=== PATIENT | female | born 1990 | race Caucasian/White ===

== ENCOUNTER 2018-06-28 14:38 | Outpatient (CLI) | payer OTHER, SELFPAY | END 2018-06-28 15:30 | disposition home or self-care (01) | LOC: WPOUT 14:39 → WP 14:39 | PROVIDERS: Referring Provider Advanced Practice Midwife; Visit Provider Advanced Practice Midwife | DX: Z39.1 Encounter for care and examination of lactating mother (principal) | CPT/HCPCS: 96152 ==

== ENCOUNTER 2018-08-02 00:05 | Inpatient (IN) | payer OTHER, SELFPAY ==
[2018-08-02] MEDS: Lactated Ringers 1,000 ML 50 ML IV (00:35)
[2018-08-02 00:39] VITALS: BMI 36.1
[2018-08-02 00:49] LABS: Hematocrit 37.5 % (37-47); Hemoglobin 12.5 g/dl (12.0-15.0); Mean Corp Hgb Conc 33.3 g/gl (32-36); Mean Corpuscular Hgb 29.3 pg (27.0-32.0); Mean Corpuscular Volume 87.8 fL (81-99); Mean Platelet Vol. 11.6 fl (6.2-12.0); Platelet Count 191 K/mm3 (150-450); RBC Distribution Width SD 43.6 fl (35.1-43.9); Red Blood Count 4.27 M/mm3 (4.2-5.4); White Blood Count 12.4 K/mm3 (4.4-11.0)
[2018-08-02 00:50] LABS: Scan Indicated on CBC? Y/N NO
--- NOTE | 2018-08-02 00:50 | PCM.HP.OB ---
History Date of Admission: 08/02/18 Final DAVID: 08/09/18 Final DAVID Source: US <20 weeks Gestational age: 39 Weeks and 0 Days History of this : 28-year-old 3 para 1011 at 39 weeks gestation with EDC of 08/09/2018 by last menstrual period confirmed by first trimester ultrasound presents for contractions. She denies any vaginal bleeding or leaking of fluid. Contractions began getting more intense at 8 PM they began right getting really intense when she arrived to labor and delivery. was uncomplicated to date. Medical history significant for history of DVT and factor V Leiden but patient does not have a history of these personally. Allergies amoxicillin Allergy (Verified 08/02/18 00:41) Hives erythromycin base Allergy (Verified 08/02/18 00:41) Hives Smoking Status: Never smoker Number of Fetus(es): 1 History Past Pregnancies: Past Pregnancies Delivery Date Name GA/Weeks Outcome Route Weight Gender Labor Length Anesthesia Delivery Location Provider FOB Expected Infant Delivery Method: Spontaneous Vaginal Review of Systems Constitutional: Denies: Anorexia, Chills, Fever Cardiovascular: Denies: Chest Pain Respiratory: Denies: Cough Skin: Denies: Rash Physical Exam General: Alert, Cooperative, No apparent distress Cardiovascular: Regular rate Lungs: Normal air movement Abdomen: Soft, Non-Distended, Gravid, Appropriate for Gestational Age Extremities:: Other - edema 1+ Assessment/Plan This is a 28 year-old, 3 para 1011 at 39 with gestation with spontaneous labor #1 estimated weight is less than 4500 g and pelvis clinically adequate to expect vaginal delivery #2 artificial rupture membranes was performed with return of clear fluid. Next number patient may have epidural or nitrous oxide as needed
[2018-08-02] MEDS: Oxytocin 30 units/NS 500 ml 30 UNITS/500 ML IV.SOLN 334 UNITS IV (01:12)
--- NOTE | 2018-08-02 01:26 | PCM.OB.VAG ---
Vaginal Delivery Maternal Presentation: Active Labor Amniotic Membrane Rupture Type: Artificial Amniotic Fluid Description: Clear Final DAVID: 08/09/18 Final DAVID Source: US <20 weeks Gestational age: 39 Weeks and 0 Days Date of Procedure: 08/02/18 Pre-Operative Diagnosis: labor Post-Operative Diagnosis: labor Surgery/ Procedure Performed: Spontaneous Vaginal Delivery Type of Anesthesia: Local with 1% lidocaine - 15 cc Description of Procedure: A vigorous male infant was delivered DOUGLAS over a second-degree perineal laceration. A tight nuchal cord was reduced. The remainder the infant was delivered with maternal pushing and gentle traction only in less than 15 seconds. The Pitocin infusion was initiated for active management of the third stage. The cord was clamped and cut after 1 minute. The was attended to by the waiting nursing staff. The placenta was delivered spontaneously and intact. The cervix and vagina were intact. The second-degree perineal laceration was repaired with 3-0 Vicryl suture in a running standard fashion. Sponge and needle counts were correct. A vaginal sweep was completed by me. Presentation: DOUGLAS Placental Delivery Description: Spontaneous Placenta Disposition: [facility] Cord Vessel Description: 3 Vessels Nuchal Cord Compression: Without compression Cord Entanglement: Around neck x 1, tight Drain: - - none Estimated Blood Loss: 400 A gender: Male (1 minute): 8 (5 minute): 9 Episiotomy Description: None Laceration: 2nd degree - perineal Medications given after delivery: IV Pitocin Complications: None
--- NOTE | 2018-08-02 01:30 | OP.PCM_ITS ---
Vaginal Delivery Maternal Presentation: Active Labor Amniotic Membrane Rupture Type: Artificial Amniotic Fluid Description: Clear Final DAVID: 08/09/18 Final DAVID Source: US <20 weeks Gestational age: 39 Weeks and 0 Days Date of Procedure: 08/02/18 Pre-Operative Diagnosis: labor Post-Operative Diagnosis: labor Surgery/ Procedure Performed: Spontaneous Vaginal Delivery Type of Anesthesia: Local with 1% lidocaine - 15 cc Description of Procedure: A vigorous male infant was delivered DOUGLAS over a second-degree perineal laceration. A tight nuchal cord was reduced. The remainder the infant was delivered with maternal pushing and gentle traction only in less than 15 sec onds. The Pitocin infusion was initiated for active management of the third stage. The cord was clamped and cut after 1 minute. The was attended to by the waiting nursing staff. The placenta was delivered spontaneously and intact. The cervix and vagina were intact. The second-degree perineal laceration was repaired with 3-0 Vicryl suture in a running standard fashion. Sponge and needle counts were correct. A vaginal sweep was completed by me. Presentation: DOUGLAS Placental Delivery Description: Spontaneous Placenta Disposition: [facility] Cord Vessel Description: 3 Vessels Nuchal Cord Compression: Without compression Cord Entanglement: Around neck x 1, tight Drain: - - none Estimated Blood Loss: 400 Infant A gender: Male (1 minute): 8 (5 minute): 9 Episiotomy Description: None Laceration: 2nd degree - perineal Medications given after delivery: IV Pitocin Complications: None
[2018-08-02] MEDS: Oxytocin 30 units/NS 500 ml 30 UNITS/500 ML IV.SOLN 167 UNITS IV (01:42)
[2018-08-02 04:05] VITALS: BP 104/63; PULSE 83; RESP 18; TEMP 36.6
[2018-08-02] MEDS: Acetaminophen 500 MG Tablet 1000 MG PO ×2 (08:41→20:56)
[2018-08-02 08:45] VITALS: BP 116/67; PULSE 90; RESP 24; TEMP 37.2; O2SAT 99
[2018-08-02 14:00] VITALS: BP 113/63; PULSE 93; TEMP 37.1; O2SAT 96
[2018-08-02 17:10] VITALS: PULSE 86; TEMP 36.9; O2SAT 98
[2018-08-02 18:10] VITALS: BP 111/58
[2018-08-02 20:00] VITALS: BP 119/66; PULSE 85; RESP 18; TEMP 37.1
[2018-08-03 00:30] VITALS: BP 116/72; PULSE 71; RESP 18; TEMP 36.5
[2018-08-03 03:45] VITALS: BP 114/55; PULSE 80; RESP 16; TEMP 36.7
[2018-08-03] MEDS: Naproxen 250 MG Tablet PO (06:25)
[2018-08-03] MEDS: Senna/Docusate Sodium 1 Tablet PO (06:25)
[2018-08-03 08:00] VITALS: BP 109/58; PULSE 77; RESP 18; TEMP 36.8
--- NOTE | 2018-08-03 09:02 | PCM.PN.OB ---
Subjective: Doing well per patient and nursing staff. Voiding and passing flatus. Ambulating and taking PO without difficulty. without concerns, baby latching well. Pain controlled by Naproxen and Tylenol. Denies headache, visual changes, chest pain, SOB,leg pain, increased vaginal bleeding or clots. Unsure for discharge date. - Physical Exam General: Alert, Oriented x3, Cooperative HEENT: Atraumatic, Normocephalic Lungs: Clear to auscultation, Normal air movement, No rhonchi, No wheeze Cardiovascular: Regular rate, Regular Rhythm, No murmurs Abdomen: Bowel Sounds Present, Soft, Non Tender, - - Fundus firm 2 below U Extremities: No edema, - - Rikki's negative Psych/Mental Status: Normal Affect, Appropriate Vital Signs Temp Pulse Resp BP Pulse Ox 98.2 F 77 18 109/58 L 98 08/03/18 08:00 08/03/18 08:00 08/03/18 08:00 08/03/18 08:00 08/02/18 17:10 Oxygen Delivery Method Room Air Weight: 204 lb Body Mass Index (BMI) 36.1 Intake and Output for Last 24 Hours 08/01/18 08/02/18 08/03/18 23:59 23:59 23:59 Output Total 200 / 200 Balance -200 / -200 Medical Necessity - Tobacco Use Smoking Status: Never smoker Assessment/Plan A:PPD #1 Second degree perineal laceration P: 1) Routine PP and care. 2) Baby getting circ today. 3) Declines LARC 4) Declines pain medicatino, will use OTC 5) Unsure for discharge today or tomorrow. Information given for follow up in 6 weeks and discharge instructions. May stay if she desires.
--- NOTE | 2018-08-03 09:08 | DCINST_ITS ---
Discharge Diet: No Restrictions Discharge Activity: Return to Normal Activity, May not drive while taking narcotic pain medications., May Shower, May Take a Tub Bath May resume sexual activity in: 4-6 weeks Weight Bearing Status: Full weight bearing Call your doctor if your incision/area has: Continuous Slow Oozing, Sudden Increased Bleeding, Increased Pain/ Swelling, Increased Redness, Foul Smelling Discharge Call your doctor if you observe: Fever of 101 or Higher, Inability to urinate, Inability to have a bowel movement, Using more than one pad per hour, Shortness of breath, Chest pain, Increased palpitations (irregular heartbeat), Calf discomfort, Uncontrolled pain Additional Instructions: If you experience any of the following, contact your healthcare provider. * Bleeding that soaks a pad every hour for 2 hours * Fever 100.4 or higher * Unrelieved incision or abdominal pain * Swelling, redness, discharge or bleeding from your incision or episiotomy site * Your incision begins to separate * Problems urinating (including inability to urinate or burning while urinating). * Visual changes * Severe headache * Flu-like symptoms * Pain or redness in one of both of your breasts * Pain, warmth, tenderness or swelling in your legs, especially the calf area * Frequent nausea and vomiting * Symptoms of depression or anxiety If you experience any of the following, call 911 or go to the nearest Emergency Room. * Chest pain * Problems breathing * Seizure activity * Partial or complete paralysis of a body part, slurred speech, weakness or sherman oping of the face, or a sudden inability to walk or hold your balance Allergies/Adverse Reactions: Allergies amoxicillin Allergy (Verified 08/02/18 00:41) Hives erythromycin base Allergy (Verified 08/02/18 00:41) Hives Medications to take at Discharge Vits [Prenatabs FA ] 1 tablet PO DAILY 08/02/18 Acetaminophen [Tylenol] 1,000 mg PO Q8H PRN PRN tablet 08/03/18 Naproxen [Naprosyn] 250 - 500 mg PO Q8H PRN PRN tablet 08/03/18 Please Follow Up With: Ebony Carlton MD When: Call to make an appointment with your doctor in 6 weeks. If you had elevated Blood Pressure or 4th degree laceration you will need to be seen in 2 weeks. Primary Care Physician: Care Physician,No Primary [Primary Care Provider] - Test Results: Test results from this visit will be discussed in further detail at your follow- up appointment, if applicable.
[2018-08-03 15:24] VITALS: BP 123/58; PULSE 88; RESP 18; TEMP 36.9
== END 2018-08-03 15:50 | disposition home or self-care (01) | DRG 807 ==
PROVIDERS: Admitting Provider Obstetrics & Gynecology; Visit Provider Obstetrics & Gynecology
DX: O69.1XX0 Labor and delivery complicated by cord around neck, with compression, not applicable or unspecified (principal); Z37.0 Single live birth; Z3A.39 39 weeks gestation of pregnancy; O70.1 Second degree perineal laceration during delivery
CPT/HCPCS: 59050; 85027; 86850; 86900; 99218; J7120; G0378

== ENCOUNTER 2018-08-08 13:40 | Outpatient (CLI) | payer OTHER, SELFPAY | END 2018-08-08 14:25 | disposition home or self-care (01) | LOC: WPOUT 13:49 → WP 13:51 | PROVIDERS: Referring Provider Obstetrics & Gynecology; Visit Provider Obstetrics & Gynecology | DX: R63.3 Feeding difficulties (principal) | CPT/HCPCS: 96152 ==

== ENCOUNTER 2021-06-17 03:50 | Emergency (ER) | payer OTHER, SELFPAY ==
[2021-06-17 03:51] VITALS: BP 115/69; PULSE 111; RESP 18; TEMP 36.7; O2SAT 96; BMI 35.8
[2021-06-17 03:54] VITALS: BP 117/74; PULSE 89; RESP 18; TEMP 37.1; O2SAT 97; BMI 35.8
--- NOTE | 2021-06-17 03:56 | EDS_ITS ---
HPI History of Present Illness Chief Complaint: Shortness of Breath Informant: patient and EMS Onset/Context/Timing Onset: Yesterday Context: gradual and light activity (now at rest) Timing: Continuous Quality: Positive for - (feels short of breath) Current Severity: Moderate Maximum Severity: Moderate Worsened by: Exertion and Coughing Relieved by: Rest Associated Symptoms cough Chest Pain: Positive for None Narrative Narrative: Patient started having fevers and a cough with some congestion for 5 days ago, started getting short of breath yesterday worse now. No known contact with anyone with Covid. She is unvaccinated. No travel out of the area recently or history of blood clots but she states a family member has them but she does not know why, it is her grandfather. PE Risk Factors: Negative for Cancer, OCP + Smoking + > 35, Prior DVT or PE, Recent immobilization, Recent surgery and Recent travel PFSH PFSH no medical history Home Medications vit,[id number] [Prenatabs FA] 1 tab PO DAILY 08/02/18 [History Last Taken 08/01/18 08:00] acetaminophen 1,000 mg PO Q8H PRN PRN tablet 08/03/18 [Rx Last Taken Unknown] naproxen 250 - 500 mg PO Q8H PRN PRN tablet 08/03/18 [Rx Last Taken Unknown] Controll 1 tab PO.IVFORM DAILY 06/17/21 [History Last Taken Unknown] albuterol sulfate [Ventolin HFA] 1 - 2 puff INHALATION Q4H PRN PRN #1 inhaler 06/17/21 [Rx Last Taken Unknown] potassium chloride [Klor-Con M20] 40 meq PO DAILY #10 tablet 06/17/21 [Rx Last Taken Unknown] Allergy/AdvReac Type Severity Reaction Status Date / Time amoxicillin Allergy Hives Verified 06/17/21 04:02 erythromycin base Allergy Hives Verified 06/17/21 04:02 Social History Smoking Status: Never smoker ROS ROS ED Constitutional Constitutional ED: Reports chills, fatigue, fever(s) and malaise; Denies body ache(s) or headache(s) Eyes Eyes: Denies change in vision or diplopia ENT ENT ED: Reports nasal congestion; Denies rhinorrhea or sore throat Cardiovascular Cardiovascular: Denies chest pain or palpitations Respiratory/Chest Respiratory/Chest: Reports cough, dyspnea and dyspnea on exertion Gastrointestinal Gastrointestinal: Denies abdominal pain, diarrhea, nausea or vomiting Genitourinary Genitourinary ED: Denies dysuria or hematuria Musculoskeletal Musculoskeletal: Denies back pain or neck pain Integumentary Denies abscess or rash Neurologic Neurologic: Denies headache(s), paresthesias or weakness Psychiatric Psychiatric: Denies anxiety or suicidal thoughts EXAM Physical Exam Const Vital Signs: 06/17/21 03:51 06/17/21 03:54 06/17/21 04:04 Temperature 98.0 F 98.7 F Temperature Source Temporal Temporal Pulse Rate 111 H 89 Respiratory Rate 18 18 Respiratory Effort Short of Breath Blood Pressure 115/69 117/74 Blood Pressure Mean 84 88 Pulse Ox 96 97 Oxygen Delivery Method Room Air Room Air Positive well nourished and well developed Constitutional Narrative: Well-appearing, no distress. Mildly tachypneic. General Appearance ED: well developed and NAD HEENT Reports moist mucous membranes normocephalic and atraumatic Eyes PERRL and EOMs intact bilaterally Neck full ROM and supple Resp normal respiratory effort and clear to auscultation bilaterally Cardio regular rate, regular rhythm and no murmurs Rate: tachycardic GI non-tender and non-distended Auscultation: normoactive bowel sounds Palpation: soft Back/Spine no CVA tenderness General Back: other FROM Extremity normal to inspection and no calf tenderness General Extremety ED: Negative for edema, pulses abnormal or tenderness General Extremity: Negative for edema or pulses abnormal Neuro oriented x3, CN's II-XII intact bilaterally and no sensory deficits noted Sensorium / Orientation: awake and alert Motor Exam: strength 5/5 throughout Skin no rashes or lesions noted and no wounds MDM MDM MDM Narrative Medical decision making narrative: Patient's Covid test returned positive. Her chest x-ray shows what appears to be a lobar infiltrate on the right lower lobe, although according to radiology, there is also some on the left. I obtained some labs at that point to check her white blood count mainly, as a clue to bacterial superinfection. Since she has leukopenia which is consistent with COVID-19, I think this is just Covid pneumonitis and not bacterial pneumonia. Dentally her potassium is very low. She has no reason to be full body potassium depleted, she did come in somewhat tachypneic and is not tachypneic on reevaluation, breathing comfortably, and is possible this is partly due to shift due to respiratory alkalosis/anxiety, however at 2.9 I think it is reasonable to give her some potassium prior to discharge home since her oxygenation is excellent at 97% on room air. She is given a dose of IV 10 mEq as well as oral 40 mEq and will be discharged on some more potassium and advised to watch her pulse ox and discussed reasons to return. Lab Data Attestation: I reviewed the patient's lab results. Labs: Laboratory Results - last 24 hr 06/17/21 06/17/21 05:20 05:20 WBC 2.8 L RBC 4.66 Hgb 12.7 Hct 38.5 MCV 82.6 MCH 27.3 MCHC 33.0 RDW Std Deviation 39.9 RDW Coeff of Greg 13.2 Plt Count 88 L MPV 11.0 Immature Gran % (Auto) 0.400 Neut % (Auto) 82.5 H Lymph % (Auto) 13.2 L [place] % (Auto) 3.9 Eos % (Auto) 0.0 Baso % (Auto) 0.0 Absolute Neuts (auto) 2.3 Absolute Lymphs (auto) 0.37 L Nucleated RBC % 0 Sodium 135 L Potassium 2.9 L Chloride 104 Carbon Dioxide 25.0 Anion Gap 6 BUN 7 Creatinine 0.78 Estim Creat Clear Calc 85.65 Est GFR (MDRD) Af Amer 109 Est GFR (MDRD) Non-Af 90 BUN/Creatinine Ratio 8.9 L Glucose 123 H Calcium 8.2 L Radiography Diagnostic Testing: Radiology Impression Chest X-Ray 06/17/21 04:02 IMPRESSION: Pneumonia in the lower lung beebe, right greater than left. Electronically Signed: Erwin Angel MD at 5:55 EDT , Service support , Discharge Plan Triage Chief Complaint: Shortness of Breath ED Provider: Artie Weir Dx/Rx/DC Orders Clinical Impression: Pneumonia due to 2019 novel coronavirus, Hypokalemia Instructions: Coronavirus Disease 2019 (COVID-19): Caring for Yourself or Ot hers, ED Hypokalemia Prescriptions: New potassium chloride [Klor-Con M20] 20 mEq tablet,ER particles/crystals 40 meq PO DAILY Qty: 10 RF: 0 albuterol sulfate [Ventolin HFA] 1 INHALER inhaler 1 - 2 puff inhalation Q4H PRN PRN (Reason: Wheezing) Qty: 1 RF: 0 No Action vit,[id number] [Prenatabs FA] 1 TABLET tablet 1 tab PO DAILY RF: 0 naproxen 250 MG tablet 250 - 500 mg PO Q8H PRN PRN (Reason: Mild Pain (-12/09)) RF: 0 acetaminophen 500 MG tablet 1,000 mg PO Q8H PRN PRN (Reason: MILD PAIN ()/Temp>99.6F) RF: 0 Controll 1 tab PO.IVFORM DAILY RF: 0 Primary Care Provider: Care Physician,No Primary Referrals: Claire Pedraza MD [STAFF PHYSICIAN] - (for follow up appt) Care Physician,No Primary [Primary Care Provider] - Activity Restrictions/Additional Instructions: Try to get a home portable pulse oximeter and closely watch her oxygen levels periodically. If you stay below 90% for more than a minute or so, and/or you are feeling like your breathing is getting worse, return to the emergency department for further evaluation. Disposition Disposition: Home, Self Care
--- NOTE | 2021-06-17 04:02 | RAD_ITS ---
STUDY: X-RAY CHEST REASON FOR EXAM: Female, 31 years old. cough sob fever TECHNIQUE: Single AP portable view of the chest. COMPARISON: None. FINDINGS: There are patchy airspace infiltrates in the lower lung beebe bilaterally, right greater than left. There is no demonstrated pleural abnormality. Normal size heart. Normal mediastinum and mack. Normal visualized aortic arch and descending thoracic aorta. There are no demonstrated acute fractures or destructive bone lesions. There is no demonstrated abnormality of the visualized soft tissue structures of the upper abdomen. RAD/Chest 1 View (Portable) IMPRESSION: Pneumonia in the lower lung beebe, right greater than left. Electronically Signed: Erwin Angel MD at 5:55 EDT , Service support ,
[2021-06-17 05:26] LABS: Absolute Lymphocyte Count 0.37 X10^3/uL (0.83-4.51); Absolute Neutrophil Count 2.3 X10^3/uL (2.0-7.7); Hematocrit 38.5 % (37-47); Hemoglobin 12.7 g/dL (12.0-15.0); Lymphocyte # 0.37 X10^3/ul (0.83-4.51); Lymphocyte % 13.2 % (19-41); Mean Corpuscular Hgb 27.3 pg (27.0-32.0); Mean Corpuscular Volume 82.6 fL (81-99); Monocyte# 0.11 X10^3/uL; Monocyte% 3.9 % (0-10); NRBC Flagged by Analyzer 0 % (0-5); Neutrophil # 2.32 X10^3/uL (2.7-7.7); Neutrophil % 82.5 % (47-70); POSITIVE COUNT YES; POSITIVE DIFFERENTIAL YES; Platelet Count 88 K/mm3 (150-450); RBC Distribution Width CV 13.2 % (11.6-14.6); RBC Distribution Width SD 39.9 fl (35.1-43.9); Red Blood Count 4.66 M/mm3 (4.2-5.4); White Blood Count 2.8 K/mm3 (4.4-11.0)
[2021-06-17 05:29] LABS: Differential Indicated SCAN CRITERIA MET
[2021-06-17 05:49] LABS: Anion Gap 6 (5-15); BUN 7 mg/dL (7-18); BUN/Creat Ratio 8.9 RATIO (10-20); Calcium,Total 8.2 mg/dL (8.5-10.1); Chloride 104 mmol/L (98-107); Creatinine, Serum 0.78 mg/dL (0.55-1.02); EST Glomerular Filtration Rate 90 mL/min (>60); Est Glom Filt Rate - Afr Amer 109 mL/min (>60); Estimated Creatinine Clearance 85.65 ml/min; Glucose 123 mg/dL (74-106); Potassium 2.9 mmol/L (3.5-5.1); Sodium Level 135 mmol/L (136-145)
[2021-06-17] MEDS: Potassium Chloride Oral Tablet 20 MEQ PO (06:16)
[2021-06-17] MEDS: Potassium Chloride 10mEq/100mL 10 MEQ/100 ML IV.SOLN. 100 MEQ IV BOLUS (06:16)
[2021-06-17 06:38] LABS: Differential Comment SCANNED
[2021-06-17 06:39] LABS: Platelet Estimate SLT DEC (ADEQ)
[2021-06-17 07:58] VITALS: BP 138/72; PULSE 66; RESP 17; O2SAT 96
--- NOTE | 2021-06-18 10:22 | CASEMGMT ---
[facility] COVID Home O2 Follow-up: This [facility] contacted pt via phone in follow-up to pt's discharge with home O2. Pt is noted to be short of breath and speaking in short sentences. Pt states is how she has been and denies any increased difficulty breathing. Pt states she is wearing her home O2 but unable to state the liter flow that she is wearing. Pt reports her PO to be doing good and staying up 90 even when ambulating although she cannot state an exact value. Reviewed follow-up with Dr. Pedraza. Pt states she does not have a PCP normally. Instructed pt to contact Dr. Pedraza's office for a visit within the next week if able and to inform them she was referred from the ED. Pt states she was able to get her prescriptions filled and has friends/family able to assist her. Pt states she is keeping herself isolated from others in her bedroom. Pt denies any questions or concerns at this time. Olya Lopez RN CM
== END 2021-06-17 08:41 | disposition home or self-care (01) ==
PROVIDERS: Emergency Provider Emergency Medicine
DX: U07.1 COVID-19 (principal); J12.82 Pneumonia due to coronavirus disease 2019; E87.6 Hypokalemia; J96.91 Respiratory failure, unspecified with hypoxia; R11.2 Nausea with vomiting, unspecified; J45.909 Unspecified asthma, uncomplicated; Z79.51 Long term (current) use of inhaled steroids
CPT/HCPCS: 71045; 80048; 85025; 87426; 96365; 96366; 99283; 99284; A4216

== ENCOUNTER 2021-06-17 16:48 | Emergency (ER) | payer OTHER, SELFPAY ==
[2021-06-17] VITALS (8 sets, daily range): BP systolic 120–124; BP diastolic 60–88; PULSE 109–127; RESP 20–24; TEMP 38.2–39.4; O2SAT 88–100; BMI 35.4
--- NOTE | 2021-06-17 20:05 | EDS_ITS ---
HPI History of Present Illness Chief Complaint: Fever Narrative Narrative: 31-year-old female presenting with nausea, shortness of breath. Patient states that she has had a fever pretty persistently for the last couple of days. She is tested for COVID-19 and was positive. She currently states she has been sick for about 7 days. Her fever had resolved and now is back. Patient states she is taking 500 mg of Tylenol every 6 hours. She is not alternating ibuprofen. She complains of nausea when she eats or drinks too much but is able to hold down food and fluids sometimes. Patient states she has new small increments. She is making urine. [facility] Medical History Asthma Home Medications acetaminophen 1,000 mg PO Q8H PRN PRN tablet 08/03/18 [Rx Last Taken Unknown] Controll 1 tab PO.IVFORM DAILY 06/17/21 [History Last Taken Unknown] albuterol sulfate [Ventolin HFA] 1 - 2 puff INHALATION Q4H PRN PRN #1 inhaler 06/17/21 [Rx Last Taken Unknown] dexamethasone 6 mg PO DAILY #7 tab 06/17/21 [Rx Last Taken Unknown] ondansetron 4 mg PO Q8H PRN PRN #20 tab 06/17/21 [Rx Last Taken Unknown] potassium chloride [Klor-Con M20] 40 meq PO DAILY #10 tablet 06/17/21 [Rx Last Taken Unknown] Allergy/AdvReac Type Severity Reaction Status Date / Time amoxicillin Allergy Hives Verified 06/17/21 16:49 erythromycin base Allergy Hives Verified 06/17/21 16:49 Social History Smoking Status: Never smoker [facility] ED Constitutional Constitutional ED: Reports chills and fever(s) Eyes Eyes: Denies blurry vision or other ENT ENT ED: Denies rhinorrhea Cardiovascular Cardiovascular: Denies chest pain or palpitations Respiratory/Chest Respiratory/Chest: Reports cough and dyspnea Gastrointestinal Gastrointestinal: Reports nausea and vomiting; Denies constipation Genitourinary Genitourinary ED: Denies dysuria or hematuria Musculoskeletal Musculoskeletal: Reports myalgias; Denies arthralgias or neck pain Integumentary Denies rash Neurologic Neurologic: Reports paresthesias; Denies headache(s) EXAM Physical Exam Const Vital Signs: 06/17/21 16:50 06/17/21 16:54 06/17/21 19:50 Temperature 103 F H 100.8 F H Temperature Source Oral Oral Pulse Rate 126 H 127 H 115 H Respiratory Rate 24 H 22 H 22 H Respiratory Effort Respiratory Pattern Blood Pressure 121/88 H 124/73 H Blood Pressure Mean 99 90 Pulse Ox 88 94 100 Oxygen Delivery Method Room Air Nasal Cannula Nasal Cannula Oxygen Flow Rate (L/min) 2 1 06/17/21 19:51 06/17/21 19:52 06/17/21 20:07 Temperature 100.8 F H Temperature Source Oral Pulse Rate 115 H Respiratory Rate 22 H Respiratory Effort Short of Breath Respiratory Pattern Tachypnea Blood Pressure 124/73 H Blood Pressure Mean 90 Pulse Ox 100 98 Oxygen Delivery Method Nasal Cannula Room Air Oxygen Flow Rate (L/min) 1 06/17/21 22:15 Temperature Temperature Source Pulse Rate 109 H Respiratory Rate 20 H Respiratory Effort Respiratory Pattern Blood Pressure 120/60 Blood Pressure Mean Pulse Ox 94 Oxygen Delivery Method Oxygen Flow Rate (L/min) Positive well nourished General Appearance ED: NAD HEENT Reports moist mucous membranes Negative for trauma Eyes PERRL and EOMs intact bilaterally Resp normal respiratory effort and clear to auscultation bilaterally Cardio regular rhythm Rate: tachycardic GI normal to inspection, nondistended, normoactive bowel sounds Neuro oriented x3 and CN's II-XII intact bilaterally Sensorium / Orientation: alert Psych mental status grossly normal Skin no rashes or lesions noted MDM MDM MDM Narrative Medical decision making narrative: Patient presenting with persistent fever. It sounds as if she is not alternating ibuprofen. She is complaining of nausea and I will give her Zofran. I reviewed her blood work from earlier today and her creatinine was normal. Patient was given p.o. Zofran for nausea as well as ibuprofen. Her fever has come down a little bit with the Tylenol she took prior to arrival. Since patient is an 88% I will try to set her up for home oxygen. Initially I was told that she could not qualify because her ambulatory pulse ox was 96 to 94% respectively on both efforts. She did only have a documented 88 from the waiting room. She has been on oxygen since has been in the ER. Appa rently we were able to set this up for her for home. She will be started on dexamethasone. She is given Zofran for nausea. She is given return precautions. Impression: 1. 1 COVID-19 pneumonitis 2. Nausea/vomiting 3. Hypoxia respiratory failure Discharge Plan Triage Chief Complaint: Fever ED Provider: Erick Wood Dx/Rx/DC Orders Instructions: Coronavirus Disease 2019 (COVID-19): Caring for Yourself or Others Prescriptions: New ondansetron 4 mg tablet,disintegrating 4 mg PO Q8H PRN PRN (Reason: Nausea) Qty: 20 RF: 0 dexamethasone 6 mg tablet 6 mg PO DAILY Qty: 7 RF: 0 No Action acetaminophen 500 MG tablet 1,000 mg PO Q8H PRN PRN (Reason: MILD PAIN (-12/09)/Temp>99.6F) RF: 0 Controll 1 tab PO.IVFORM DAILY RF: 0 potassium chloride [Klor-Con M20] 20 mEq tablet,ER particles/crystals 40 meq PO DAILY Qty: 10 RF: 0 albuterol sulfate [Ventolin HFA] 1 INHALER inhaler 1 - 2 puff inhalation Q4H PRN PRN (Reason: Wheezing) Qty: 1 RF: 0 Primary Care Provider: Care Physician,No Primary Referrals: Alexx Ceballos MD [STAFF PHYSICIAN] - As soon as possible Care Physician,No Primary [Primary Care Provider] - Disposition Disposition: Home, Self Care
[2021-06-17] MEDS: Ondansetron ODT 4 MG Tablet PO (20:09)
[2021-06-17] MEDS: Ibuprofen 600 MG Tablet PO (20:09)
--- NOTE | 2021-06-17 23:09 | CM.ED ---
Addendum entered by Laura Tavarez 06/17/21 23:40: EMail sent to [facility] Home O2 list Original Note: CHEY Note: Referral Source: MD Referral Reason: Oxygen MD said patient has been to the ED 2 x today. Patient was documented being on 88% while in triage. Inquired about home oxygen. Patient was at 94% at rest per charting by RN and patient did not walk with exertion with oxygen as not needed. Patient COVID 19 positive. CHE[place] [facility] [place]. [place] [facility] [place] [facility] or can transfer to [facility] and they did not know. CHEY made referral and then [place] [facility] CHEY spoke to patient and her . Explained that home oxygen may be out of network and this mortgage underwriter does not know the cost of home oxygen. Patient's , Juarez, said that they will pay out of network for home oxygen. CHEY spoke [place] [facility] [place] Brandyn. He said that he has no idea if [employer] is in network or can be transferred. Brandyn will call family tonight to set up home oxygen. CHEY updated patient's that [facility] [place] to [place] oxygen. He again voiced he would pay out of network to take oxygen home for . Plan: Home with Oxygen. Laura SALGUERO
--- NOTE | 2021-06-21 18:36 | CASEMGMT ---
[facility] COVID Home O2 Follow-up: Pt states she is feeling much better since Monday. Pt reports to not be wearing her O2 during the day and only wearing it at hs. Pt reports her PO to be 96-98% on RA during the day. Pt states she has a lingering cough but denies difficulty breathing. Noted pt was not initally sob during the conversation but did become SOB after speaking for a few minutes. Pt states she has been walking around in her yard without the O2 and her PO stays 90-92%. Pt states she was able to get a follow-up appointment next Monday 07/02. Pt asked about returning O2 equipement, instructed pt to see how her follow-up appointment goes and if the physician feels she can go off of it at that time. Educated her that the physician would need to notify [facility] of it being ok to discontinue. Pt expressed understanding. Reviewed quartantine period and pt states she developed symptoms on 06/09. Saturday 06/23 would be 14 days. Pt expressed understanding. Pt denies any further questions or concerns. Olya Lopez RN CM
--- NOTE | 2021-06-24 12:17 | CASEMGMT ---
[facility] COVID Home O2 Follow-up: [facility] contacted pt via phone for follow-up. Pt states she is continuing to feel better. Pt states she primarily becomes sob with talking and with taking the stairs. Pt reports to not be wearing her O2 during the day and only at HS. Pt reports her PO to be 95-96% on RA during the day. Pt states she has not checked her PO after taking the stairs (she just started to do the laundry which is located in the basement). Pt states she will check her PO upon returning the next time she takes the steps. Pt states she is taking two walks a day and states she is almost back to her normal walking speed. Pt asked about when to stop using the oxygen completely, Instructed pt to follow-up with her physician for that decision. Pt agreeable. Pt denies any further questions or concerns at this time. Olya Lopez RN CM
--- NOTE | 2021-06-24 12:21 | CASEMGMT ---
[facility] Home O2 Follow-up: Late entry for 06/18 This [facility] contacted pt via phone for follow-up. Pt noted to be dyspneic with conversation and speaking in shortened sentences. Pt reports to be wearing her home O2 and for PO to be in the 90's on the prescribed liter flow as she has not changed the setting on her concentrator. Pt is able to remain isolated. Discussed follow-up. Pt denied further questions or concerns. Olya Lopez RN CM
== END 2021-06-17 23:20 | disposition home or self-care (01) ==
PROVIDERS: Emergency Provider Student in an Organized Health Care Education/Training Program
DX: U07.1 COVID-19 (principal); J12.82 Pneumonia due to coronavirus disease 2019; R11.2 Nausea with vomiting, unspecified; J96.91 Respiratory failure, unspecified with hypoxia; J45.909 Unspecified asthma, uncomplicated; Z79.51 Long term (current) use of inhaled steroids
CPT/HCPCS: 99283